=== PATIENT | male | born 1935 | race Caucasian/White ===

== ENCOUNTER 2024-12-08 13:42 | Inpatient (IN) | payer MEDICARE, OTHER, SELFPAY ==
[2024-12-08] VITALS (7 sets, daily range): BP systolic 78–141; BP diastolic 53–118; BMI 25.6
--- NOTE | 2024-12-08 08:51 | W.PN.CARDCBS ---
Addendum entered and electronically signed by PRANAV Christopher 12/08/24 10:50:
[id number]
Original Note:
Today's Communication / Plan
-
CT Chest images from [facility] before cath for review
[facility] with possible RCA lithotripsy PCI
TAVR workup
Impression / Plan
-
PCP: Isidoro Disla MD
CDY: Jhonny Pagan,
HPI: 89 y/o, PMH CAD w/prior CABG x2 (AUGUSTE-LAD, Vg-LCx), prior NSTEMI w/proximal RCA PCI w/BERENICE (02/2016) and recently a second NSTEMI, s/p ostial-proximal RCA PCI w/BERENICE on 11/01/24 at [facility] with Dr. Iqbal. At the time, the AUGUSTE was patent with
severely diseased diagonal with back flow into the LAD, occluded VG to LCx, 75% ostial/prox RCA that was treated with BERENICE. Also noted was severe , with PG 31.8 MG 19.5, ALIS 0.93cm2.
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 Lives independently at [facility].
Pt presented to [facility] via EMS after recurrent episodes of intermittent self limiting chest pain since cath in October. This week, the pain is progressive with increased intensity. On the day of admission, developed 8/10 chest pain and called EMS.
Denies SOB, palps, syncope. HS troponin trended with peak 3652, corresponding CK/MB peaks at 1686/240. He is on daily asa/plavix at home. Started in IV heparin and IV nitro, although treatment is limited d/t hypotension/orthostasis.
Pt was brought to general labor on 12/07-
LM severely calcified, 99% distal LM extending into LAD, LCx
LAD- 100% prox GRIDDLE ATTENDANT, severely calcified
LCx- 100% mid GRIDDLE ATTENDANT with competitive flow in distal LCx via unidentified vessel
RCA- difficulty engaging RCA with pressure dampening
IVUS catheter only to distal stent edge, pullback with calcifications present, w/poor expansion and proximal calcifications
stent malposition, appeared to extend out of the ostium about 1 to 2 mm
Previously placed stents patent with 20-30% mid stenosis.
AUGUSTE-LAD patent
Unable to find origin of VG-LCx, CABG report unavailable
Decision was made to transfer pt to for possible shockwave lithotripsy/stenting to proximal RCA, as well as possible TAVR workup for severe .
IMPRESSION/PLAN:
CAD w/NSTEMI
prior NSTEMI w/RCA PCI (10/2024)
prior CABG x2, unknown date/location- between [id number])
multivessel CAD at [facility] 12/07/24
malposition and poor expansion with proximal calcifications of prox RCA stent
will need re-look here with possible shockwave lithotripsy and stenting
unable to visualize the VG to LCx- will try to get CT Chest images from 09/03/24 for possible graft origin prior to case
already on DAPT w/asa, plavix
currently on heparin gtt, nitro gtt
creat stable post dye load- 0.86 today
plan pending cath result
Mod-Sev /Mod-Sev MR
echo 12/07/24- EF 35%, inferior, distal ap/lateral HK, mild CLVH, mild dil LA, mod-sev MR, mod-sev w/PG 36.8, MG 17.1, ALIS 1.10cm2. (prior echo 10/2024 w/severe , with PG 31.8 MG 19.5, ALIS 0.93cm)
plan is for possible TAVR workup this admission
Chronic systolic HFrEF, 35%
low BP/orthostasis limiting GDMT
currently only on metoprolol xl 12.5mg daily
at home- lasix 40/d, spironolactone 12.5/d- both on hold right now
HLD- lipid profile: Total Chol 95/TG 81/HDL 39/LDL 40
continue atorvastatin 40/d
Orthostasis/hypotension
BP 80s this morning- continue midodrine 10mg TID
monitor BPs
Nonreversible bradycardia w/CHB, RBBB
s/p PPM implant (Medtronic MRI safe 2015)
PAF- currently in NSR
[id number]=
only on asa/plavix d/t history recurrent falls
Stable anemia- hgb 9.5 at baseline
COPD/RLD- stable
Progress Note - Autocad Designer
Subjective
Date of Service: December 08, 2024
[2024-12-08 13:09] LABS: ACT-LR - POC 231 Seconds (116-155)
[2024-12-08 13:49] LABS: O2 Saturation % 99.7 % (94-98); PCO2 30 mmHg (35-48); PO2 137 mmHg (83-108)
[2024-12-08 13:53] LABS: HCO3 11.7 mmol/L (21-28)
--- NOTE | 2024-12-08 14:02 | CON.INTV ---
Consultation
Consultation Request
Date/Time Consultation Requested: 12/08/2024 - 132
Date/Time Consultation Performed: 12/08/2024 - 1349
Requesting Provider: PRANAV Christopher
Performing Provider: Dr. Gonzalez
Reason for Consultation: VT arrest in rn cardiac cath
Medical History
-
Chief Complaint: Chest pain
History of Present Illness:
89-year-old male former tobacco smoker with a past medical history of CAD s/p CABG, history of NSTEMI s/p PCI (2015) as well as recently in October 2024, chronic HFmrEF, aortic stenosis, mitral regurgitation, A-fib s/p PPM (February 2016),
hyperlipidemia, chronic hypotension on midodrine and COPD who initially presented to [facility] with chest pain which had been increasing since October 2024. He was admitted to [facility] and cath showed multivessel CAD with concern for in-stent restenosis of
the RCA and closure of a vein graft. He was transferred here to [place] for further evaluation. He underwent a cardiac cath today with right heart cath showing left-sided heart failure with increased PCWP of 33, reduced CI of 1.8 and left heart
cath showed closure of the vein graft with decreased flow through the RCA stent s/p balloon angioplasty. Cath was complicated by hypotension with nonresponsiveness and VT arrest s/p 1 minute CPR and epi given with ROSC obtained. He was not
intubated. Amiodarone started due to SVT and he was transferred to the CVICU with windows architect services consulted for additional management/recommendations.
When asked with the patient he was in bed, agitated, tachycardic to 137, hypotensive to 97/54 via A-line (97/70 via NIBP), and was saturating 92% on nonrebreather at 14 L/min. Due to agitation I was unable to obtain any current history from him or
ROS.
Of note he had previously seen us in the office in [address] Lemos. He was seeing us at the time for dyspnea on exertion. Last full PFT performed in May 2018 which was negative for COPD and negative for restriction. He had a normal gas
exchange capacity as well with DLco: 92%. Last 6-minute walk test performed in December 2020 showing he did not need home oxygen with huong SaO2 of 98% and he was able to walk 750 feet.
PMHx: CAD, history of NSTEMI, history of pacemaker, A-fib, history of RBBB, history of complete heart block, hypertension, history of COPD
PSHx: Left shoulder surgery, pacemaker, coronary stent
Past Medical History
Past Medical History: Other (Above as per HPI)
Past Surgical History: Other (Above as per HPI)
Social History
Tobacco: Former Smoker
Alcohol: None
Drug: None
Employment: Retired
Family History
Family History: Cancer (Father (unknown type))
Allergies / Home Medications
Allergies
Allergy/AdvReac Type Severity Reaction Status Date / Time
No Known Allergies Allergy Unverified 12/08/24 16:02
Home Medications
�Medication �Instructions �Recorded �Confirmed �Last Taken �Type
ascorbic acid (vitamin C) 1,000 mg 1,000 mg PO DAILY 02/17/16 12/08/24 02/17/16 06:00 History
tablet (Vitamin C)
cholecalciferol (vitamin D3) 25 1,000 unit PO BID 02/17/16 12/08/24 02/17/16 06:00 History
mcg (1,000 unit) capsule (Vitamin
D3)
melatonin 3 mg tablet 3 mg PO HS PRN insomnia 02/17/16 12/08/24 02/16/16 22:00 History
clopidogrel 75 mg tablet 75 mg PO DAILY ##90 02/19/16 12/08/24 12/08/24 08:00 Rx
aspirin 81 mg chewable tablet 81 mg PO DAILY 12/08/24 12/08/24 12/08/24 08:00 History
atorvastatin 40 mg tablet 40 mg PO QPM 12/08/24 12/08/24 12/07/24 18:36 History
bisacodyl 5 mg tablet,delayed 10 mg PO DAILYPRN PRN constipation 12/08/24 12/08/24 Unknown History
release
cyanocobalamin (vitamin B-12) 1,000 mcg PO DAILY 12/08/24 12/08/24 Unknown History
1,000 mcg tablet (Vitamin B-12)
docusate sodium 100 mg capsule 100 mg PO DAILY 12/08/24 12/08/24 Unknown History
(Colace)
folic acid 1 mg tablet 1 mg PO DAILY 12/08/24 12/08/24 Unknown History
furosemide 40 mg tablet 40 mg PO DAILY@1400 12/08/24 12/08/24 Unknown History
magnesium citrate 100 mg tablet 100 mg PO DAILY 12/08/24 12/08/24 Unknown History
magnesium hydroxide 400 mg/5 mL 30 ml PO DAILY PRN constipation 12/08/24 12/08/24 Unknown History
oral suspension
metoprolol succinate 25 mg 12.5 mg PO DAILY 12/08/24 12/08/24 Unknown History
tablet,extended release 24 hr
miconazole nitrate 2 % topical 1 applic topical BID 12/08/24 12/08/24 Unknown History
cream
midodrine 10 mg tablet 10 mg PO TID 12/08/24 12/08/24 12/08/24 08:00 History
nystatin 100,000 unit/gram topical 1 applic topical BID 12/08/24 12/08/24 Unknown History
powder
pantoprazole 40 mg tablet,delayed 40 mg PO DAILY 12/08/24 12/08/24 Unknown History
release (Protonix)
spironolactone 25 mg tablet 25 mg PO QPM 12/08/24 12/08/24 Unknown History
Review of Systems
-
Unable to Obtain full review of systems at this time due to: Acuity
Vitals / Labs / Diagnostic Testing
Vital Signs
Temp Pulse Resp BP Pulse Ox
98.9 F 78 20 93/64 99
12/08/24 18:00 12/08/24 18:00 12/08/24 18:00 12/08/24 15:00 12/08/24 17:00
Lab Data
12/08/24 14:25
12/08/24 14:25
Laboratory Results
12/08/24 12/08/24 12/08/24
13:41 14:16 14:25
PT 16.6 H
INR 1.31
APTT > 200 H*
pH 7.20 L 7.32 L
pCO2 30 L 21 L
pO2 137 H 175 H
HCO3 11.7 L* 10.8 L*
O2 Delivery Level
12/08/24 12/08/24 12/08/24
15:59 17:23 17:25
PT
INR
APTT 81.6 H
pH 7.36 7.25 L
pCO2 22 L 23 L
pO2 156 H 139 H
HCO3 12.4 L* 10.1 L*
O2 Delivery Level Not Reportable
Diagnostic Testing:
Physical Exam
-
HEENT: Normocephalic and Anicteric
Cardiovascular: Peripheral Edema (negative) and Other (Tachycardic)
Respiratory: Wheeze (negative), Rhonchi (negative), Accessory Resp Muscle Use (mild) and Other (Coarse breath sounds heard bilaterally)
GI: Soft, Non Distended, Non Tender and Normal Bowel Sounds
Neurology: Awake, Tremors (negative) and Other (Confused/agitated)
Skin: Warm and Dry
General: Respiratory Distress (mild), Fever (negative) and Chills (negative)
Assessment
-
Assessment: 89-year-old male former tobacco smoker with a past medical history of CAD s/p CABG, history of NSTEMI s/p PCI (2015) as well as recently in October 2024, chronic HFmrEF, aortic stenosis, mitral regurgitation, A-fib s/p PPM (February
2015), hyperlipidemia, chronic hypotension on midodrine and COPD who initially presented to [facility] with chest pain which had been increasing since October 2024. He was admitted to [facility] and cath showed multivessel CAD with concern for in-stent
restenosis of the RCA and closure of a vein graft. He was transferred here to [place] for further evaluation. He underwent a cardiac cath today with right heart cath showing left-sided heart failure with increased PCWP of 33, reduced CI of 1.8
and left heart cath showed closure of the vein graft with decreased flow through the RCA stent s/p balloon angioplasty. Cath was complicated by hypotension with nonresponsiveness and VT arrest s/p 1 minute CPR and epi given with ROSC obtained. He
was not intubated. Amiodarone started due to SVT and he was transferred to the CVICU with windows architect services consulted for additional management/recommendations.
Chronic conditions SHEET ROCK INSTALLER: CAD, history of NSTEMI, history of pacemaker, A-fib, history of RBBB, history of complete heart block, hypertension, history of COPD
Impression:
#VT arrest s/p ACLS with epi with ROSC obtained
#Acute respiratory failure with hypoxia
#Lactic acidosis due to presumed sepsis from UTI
#Shock due to sepsis in the setting of UTI as well as cardiogenic
#Leukocytosis due to sepsis
#Acute anemia
#Metabolic acidosis with increased anion gap due to lactic acidosis
#Hyperglycemia (last HbA1c: 6.3 in February 2016)
#Transaminitis
#Elevated troponin in the setting of recent cath
#Acute HFmrEF exacerbation with increased PCWP at 33 via right heart cath from today (12/08/2024)
#Complicated UTI
#SVT withA-fib with RVR mixed with ocassional VT now on amiodarone gtt
Plan:
Since coming out of the [facility], he has remained tachycardic with worsening lactic acidosis and altered mental status
Given cefepiem, IV vanco, 1L NS 0.9% bolus and re-bolused with IV amio and given dig, also given 4 amps total of bicarb
Bicarb drip being started but he is becoming increasingly more lethargic and will likely need to be intubated assuming this is in line with patient's goals of care given his advanced age
Trend HCO3
Trend lactate until <2mmol/L
Maintain aspiration precautions and keep HOB >30-45�
Maintain SpO2 88-95%
prn nebulized bronchodilators - not currently bronchospastic
Trend blood gas to monitor pH and pCO2
Mendenhall in place
Once he got back from the [facility], Mendenhall catheter was inserted and there was cloudy, yellow/pink-colored urine which came out into the tubing
Trend WBC and monitor for fevers
Broad-spectrum antibiotics started with cefepime + IV vanco
Check a blood culture and urine culture is sent and is pending
Check CXR -I personally viewed this and there was pulmonary vascular congestion with no obvious signs of pneumonia (follow-up official impression)
Hold off on diuretics given his hypotension with shock state on vasopressors (Levophed currently)
Start vasopressin given concern for sepsis
Maintain MAP >65 with levophed
Continue ASA + plavix with high intensity statin
Goal HR <110, and continue with amiodarone drip
Trend LFTs
Check TSH with reflex to fT4
Also started on digoxin with goal of total load of 1mg
May need to change Levophed to Bong-Synephrine if tachycardia worsens
Replete electrolytes with K>4, Mg>2
Cardiology on board and recommendations appreciated
Interrogation of PPM per cardiology - follow up results
Monitor blood sugar to maintain euglycemia with goal BG 140-180 with ISS q6hr
DVT prophylaxis
Guarded prognosis - he remains full code
Continue ICU level care for this critically ill patient.
Critical care statement: A total of 38 minutes of critical care time was provided for this patient today. This includes management of unstable vital signs, evaluation of the patient at bedside, reviewing the patient's pertinent medical records
including radiographs, microbiology, laboratory evaluations, and discussion with primary team, consultants, pharmacy, nutrition, physical therapy, case management, charge nurse, critical care nursing, and respiratory therapy.
[2024-12-08] MEDS: XYLOCAINE BOLUS 100 MG 50 MG IV (14:15)
[2024-12-08 14:23] LABS: B.E. -13.6 mmol/L; PCO2 21 mmHg (35-48); PO2 175 mmHg (83-108); pH 7.32 (7.35-7.45)
[2024-12-08] MEDS: SODIUM BICARBONATE 100 MEQ IV ×3 (14:25→20:54)
[2024-12-08 14:26] LABS: HCO3 10.8 mmol/L (21-28)
[2024-12-08] MEDS: MAGNESIUM SULFATE 50 IV (14:30)
[2024-12-08] MEDS: XYLOCAINE 2 GRAM 500 IV (14:35)
[2024-12-08] MEDS: LEVOPHED 250 IV (14:36)
[2024-12-08 14:41] LABS: % Basophils 0.6 % (0-2); % Eosinophils 0.2 % (0-6); % Monocytes 9.8 % (1.7-9.3); % Neutrophils 66.4 % (42.2-75.2); Absolute Basophils 0.1 10^3/uL (0-0.2); Absolute Immature Granulocytes 0.1 10^3/uL (0-0.05); Absolute Lymphocytes 2.8 10^3/uL (1.2-3.4); Absolute Monocytes 1.3 10^3/uL (0.1-0.6); Absolute Neutrophils 8.5 10^3/uL (1.4-6.5); Hematocrit 29.8 % (39.0-52.0); Hemoglobin 9.6 g/dL (13.0-18.0); Mean Corp Hgb Conc. 32.2 g/dL (33.0-37.0); Mean Corpuscular Hgb 27.4 pg (27.0-31.0); Mean Corpuscular Volume 84.9 fL (80.0-94.0); Nucleated Red Blood Cells % 0 % (-); Platelet Count 235 10^3/uL (130-400); Red Blood Cell Count 3.51 10^6/uL (4.70-6.10); Red Cell Dist. Width 16.7 % (11.5-14.5); White Blood Cell Count 12.7 10^3/uL (4.8-10.8)
[2024-12-08] MEDS: CORDARONE 103 MG IV ×2 (14:45→17:38)
[2024-12-08] MEDS: MORPHINE SULFATE 1 MG IV (14:50)
[2024-12-08 14:53] LABS: INR 1.31; PT 16.6 Sec (11.4-14.6)
[2024-12-08 15:05] LABS: Lactic Acid 7.6 mmol/L (0.7-2.0)
[2024-12-08 15:09] LABS: Urine Albumin 3+ (Neg - Trace); Urine Bilirubin 1+ (Negative); Urine Character Slightly Cloudy (Clear); Urine Glucose Negative (Negative); Urine Ketone Trace (Negative); Urine Leukocyte 2+ (Negative); Urine Nitrite Positive (Negative); Urine Occult Blood 4+ (Negative); Urine Urobilinogen Negative (Neg - 1+)
[2024-12-08 15:09] LABS: APTT > 200 Sec (23.4-35.0)
[2024-12-08 15:10] LABS: Urine Color Pink
[2024-12-08 15:16] LABS: Urine Squamous Cell 0-2 /LPF (Few)
[2024-12-08 15:18] LABS: Urine White Cell 60-70 /HPF (0-5)
[2024-12-08 15:19] LABS: Urine Bacteria Moderate (Negative); Urine Red Blood Cell >100 /HPF (0-2)
--- NOTE | 2024-12-08 15:21 | HPS.HSE ---
Family Physician
-
Family Physician: MAGNOLIA MUNROE, DO
Chief Complaint
-
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
History of Present Illness
Mr. Charles Nowak is a 89 yo man with hx CAD with prior CABG, prior NSTEMI s/p PCI 2015 and recently 11/01/24, chronic HFmfEF (43%), moderate-severe and MR, paroxysmal afib, bradycardia s/p PPM 04/16, HLD, orthostasis on midodrine, COPD presented
to [facility] with recurrent episodes of chest pain since cath in October which increased in intensity. He was admitted to [facility] and is s/p cath showing multivessel CAD with concern for in-stent restenosis of RCA and closure of vein graft. He was
transferred to for further intervention.
Patient underwent cardiac cath today. RHC performed first showing high filling pressures with wedge 33, index 1.8. LHC showed likely closure of vein graft with decreased flow RCA stent s/p balloon angioplasty. Cath complicated by episode of
hypotension and non-responsiveness s/p 1minute CPR and Epi with immediate ROSC and normal mentation. He is in SVT and amio gtt started.
Patient seen in CVICU. He is short of breath, urinating post lasix given. Denies current chest pain.
Medical History
Past Medical History
Past Medical History: Reports Other (CAD with prior CABG, prior NSTEMI s/p PCI 2015 and recently 11/01/24, chronic HFmfEF (43%), moderate-severe and MR, paroxysmal afib, bradycardia s/p PPM 04/16, HLD, orthostasis on midodrine, COPD)
Past Surgical History: Reports Cardiac (CABG)
Social History
Tobacco: Former Smoker
Alcohol: Occasional
Drug: None
Family History
Family History: Not pertinent
Allergies / Home Medications
Allergies reflects when Allergies were last updated in [employer].
Home Medications with original date entered in [employer]
Allergy/Medication List:
Allergies
Allergy/AdvReac Type Severity Reaction Status Date / Time
amiodarone Allergy Unknown Verified 12/08/24 10:28
Home Medications
ascorbic acid (vitamin C) 1,000 mg tablet (Vitamin C) 1,000 mg PO DAILY 02/17/16
cholecalciferol (vitamin D3) 25 mcg (1,000 unit) capsule (Vitamin D3) 1,000 unit PO BID 02/17/16
melatonin 3 mg tablet 3 mg PO HS PRN insomnia 02/17/16
clopidogrel 75 mg tablet 75 mg PO DAILY ##90 02/19/16
aspirin 81 mg chewable tablet 81 mg PO DAILY 12/08/24
atorvastatin 40 mg tablet 40 mg PO QPM 12/08/24
bisacodyl 5 mg tablet,delayed release 10 mg PO DAILYPRN PRN constipation 12/08/24
cyanocobalamin (vitamin B-12) 1,000 mcg tablet (Vitamin B-12) 1,000 mcg PO DAILY 12/08/24
docusate sodium 100 mg capsule (Colace) 100 mg PO DAILY 12/08/24
folic acid 1 mg tablet 1 mg PO DAILY 12/08/24
furosemide 40 mg tablet 40 mg PO DAILY@1400 12/08/24
magnesium citrate 100 mg tablet 100 mg PO DAILY 12/08/24
magnesium hydroxide 400 mg/5 mL oral suspension 30 ml PO DAILY PRN constipation 12/08/24
metoprolol succinate 25 mg tablet,extended release 24 hr 12.5 mg PO DAILY 12/08/24
miconazole nitrate 2 % topical cream 1 applic topical BID 12/08/24
midodrine 10 mg tablet 10 mg PO TID 12/08/24
nystatin 100,000 unit/gram topical powder 1 applic topical BID 12/08/24
pantoprazole 40 mg tablet,delayed release (Protonix) 40 mg PO DAILY 12/08/24
spironolactone 25 mg tablet 25 mg PO QPM 12/08/24
Review of Systems
-
History Source: Patient
A 12 point ROS was completed and negative except as noted: Yes
Physical Exam
Vital Signs
Vital Signs
Temp Pulse Resp BP Pulse Ox
98.9 F 81 10 88/53 94
12/08/24 10:47 12/08/24 11:15 12/08/24 11:15 12/08/24 10:53 12/08/24 11:15
Physical Exam
General: Other (frail appearing, tachypneic )
HEENT: PERRLA
Respiratory: Rales
Cardiac: S1/S2 and Tachycardia
GI: Soft and Non Tender
Musculoskeletal: No Edema
Skin: Warm and Dry; No Rash
Neuro: Awake and Alert
Psych: Anxious
Laboratory Results
-
12/08/24 14:25
Laboratory Results
PT 16.6 Sec (11.4-14.6) H 12/08/24 14:25
INR 1.31 12/08/24 14:25
APTT > 200 Sec (23.4-35.0) H* 12/08/24 14:25
pH 7.32 (7.35-7.45) L 12/08/24 14:16
pCO2 21 mmHg (35-48) L 12/08/24 14:16
pO2 175 mmHg (83-108) H 12/08/24 14:16
HCO3 10.8 mmol/L (21-28) L* 12/08/24 14:16
Lactic Acid 7.6 mmol/L (0.7-2.0) H* 12/08/24 14:29
Data Reviewed
-
Diagnostic Radiology: Report Reviewed by me
Lab Data: Labs Reviewed by me
Impression/Plan
-
Mr. 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
to [facility] with recurrent episodes of chest pain since cath in October which increased in intensity. He was admitted to [facility] and is s/p cath showing multivessel CAD with concern for in-stent restenosis of RCA and closure of vein graft. He was
transferred to for further intervention.
Patient underwent cardiac cath today. RHC performed first showing high filling pressures with wedge 33, index 1.8. LHC showed likely closure of vein graft with decreased flow RCA stent s/p balloon angioplasty. Cath complicated by episode of
hypotension and non-responsiveness s/p 1minute CPR and Epi with immediate ROSC and normal mentation. He is in SVT and amio gtt started.
Heart Failure mildly reduced EF Acute Exacerbation
-elevated wedge pressure in cath
-s/p Lasix 80mg IV ; continue 40mg IV BID
-daily weights, strict I/O
-TTE 12/07 with EF 35% with WMA; moderate-severe MR and moderate-severe
NSTEMI
Coronary Artery disease hx CABG
Hx PCI, most recent 11/01/24
s/p balloon angioplasty to RCA earlier today
-continue asa/plavix/statin
-trend Troponins, up to 41.1
Cardiogenic Shock
-IV Diuresis as above
-Continue Levophed
-holding WHANAU SUPPORT WORKER Metoprolol
-patient is on TID Midodrine at home
Possible UTI with inflamed urine
-continue IV Cefepime while awaiting urine culture
AG Metabolic Acidosis; Lactic Acidosis 2/2 Above
-diuresis
-trend lactate
SVT
-continue IV amiodarone, IV Digoxin ordered
Moderate-Severe
Moderate-Severe MR
-plan is for possible TAVR work-up this admission
Nonreversible bradycardia w/CHB, RBBB
s/p PPM implant (Medtronic MRI safe 2015)
Atrial Fibrillation
-not on AC 2/2 falls
GERD - WHANAU SUPPORT WORKER Protonix
FULL CODE
Total Critical Care Time 45 minutes. I was immediately available to the patient and staff. I personally examined, reviewed labs, diagnostic images/reports, interpretations, treatment plans, discussed patient care with other providers and family
or caregivers (if patient is unable to make decisions), entered orders as appropriate and documented the medical record.
[2024-12-08] MEDS: NSS 500 VEN SHEATH (15:26)
[2024-12-08] MEDS: LR 1000 IV (15:26)
[2024-12-08] MEDS: LANOXIN 500 MCG IV (15:26)
[2024-12-08 15:33] LABS: AST (SGOT) 258 U/L (17-59); Albumin 3.4 g/dl (3.5-5.0); Alkaline Phosphatase 73 U/L (38-126); Blood Urea Nitrogen 27 mg/dl (9-20); Calcium 8.3 mg/dl (8.4-10.2); Carbon Dioxide 9 mmol/L (22-30); Chloride 111 mmol/L (98-107); Estimated Creatinine Clearance 47 ml/min; Glucose 213 mg/dl (70-99); Potassium 3.9 mmol/L (3.5-5.1); Sodium 138 mmol/L (135-145); Total Protein 5.9 g/dl (6.3-8.2); eGFR > 60.00
[2024-12-08] MEDS: CORDARONE 518 MG IV (15:41)
[2024-12-08 15:48] LABS: ALT (SGPT) 54 U/L (0-50)
--- NOTE | 2024-12-08 15:52 | PHA.VAN.IN ---
Assessment
- Assessment
Renal Function: Unknown baseline
Concomitant Antimicrobials: cefepime
Plan
- Plan
Initial / Loading Dose: 2000mg - administration pending
Maintenance Regimen: dosing by level
Monitoring: random 12/09 06
MRSA Screen: Ordered per protocol
Will start with dosing by level for now to trend renal function post finishing lab technician
Pharmacokinetics Vancomycin I
- -
Patient Age: 89
Patient Sex: Male
Vancomycin Day #: 1
Indication: Other
Requesting Provider: Omaira Smith
Pertinent Antimicrobial Allergies:
no pertinent antibiotic allergies
Height / Weight:
Height 5 ft 7 in
Actual Weight 74.2 kg
- Vital Signs / Lab Results
Temp Pulse Resp BP Pulse Ox
98.9 F 81 10 88/53 94
12/08/24 10:47 12/08/24 11:15 12/08/24 11:15 12/08/24 10:53 12/08/24 11:15
Lab Results - Hematology
12/08/24
14:25
WBC 12.7 H
Lab Results - Chemistry
12/08/24
14:25
BUN 27 H
Creatinine 1.0
Estimated Creat Clear 47
Albumin 3.4 L
12/08/24
14:29
Lactic Acid 7.6 H*
Lab Results - Urine
12/08/24
14:59
Urine Nitrite (Reflex) Positive A
Leukocyte Esterase Rfl 2+ A
Urine WBC (Reflex) 60-70 A
Ur Squamous Epith Cells 0-2
Urine Bacteria (Reflex) Moderate A
--- NOTE | 2024-12-08 16:00 | PTCARENOTE ---
Pt received from cath lab radiological technologist ~1400. Pt agitated and restless. Dr. Ashraf at bedside. Pt in [place] on the tele monitor. HR >120s. BP labile. 90-100s/50s. Levo infusing as ordered. Lido push, bicarb, amio bolus & drip, morphine, and digoxin administered
as ordered - see MAR. B/L DP pulses present via doppler. B/L radial pulses palpable. Pt on non-rebreather mask at 14 L. Unable to get POX. ABG POX shows 99-100%. Pt tachypneic. Mendenhall catheter initiated. Imani/blood tinged urine upon insertion. UA
sent. Left radial cath site w/ R band intact. Air removed as appropriate. Right fem arterial and venous site intact and transducing. Right leg immobilizer applied. EKG obtained. Labs trended as ordered. Lytes correctly per labs. Family updated by
.
[2024-12-08 16:09] LABS: B.E. -11.5 mmol/L; O2 Saturation % 99.5 % (94-98); PCO2 22 mmHg (35-48); PO2 156 mmHg (83-108); pH 7.36 (7.35-7.45)
[2024-12-08] MEDS: VANCOCIN 540 MG IV (16:14)
[2024-12-08 16:23] LABS: HCO3 12.4 mmol/L (21-28)
[2024-12-08] MEDS: STERILE WATER FOR INJECTION 10 ML IV (16:39)
[2024-12-08] MEDS: KCL 50 IV (16:39)
[2024-12-08] MEDS: MAXIPIME 2000 MG IV (16:39)
--- NOTE | 2024-12-08 16:39 | CM ---
Chart reviewed. I spoke to the patient's daughter and son in law to obtain the information. Patient is independent of ADLS, lives independent living at [facility], with his who has dementia, 3rd floor, elevator access, ambulates with a RW.
Patient was hospitalized at [place] and then discharged to [facility], where [facility] back to home with [facility]. Patient returned to [place] with CP on 12/06 and transferred to on 12/08. Plan will be
to be discharged home with VN or SNF based on patients functional assessment needs. CM to follow
[2024-12-08 17:32] LABS: B.E. -15.5 mmol/L; O2 Saturation % 99.6 % (94-98); PCO2 23 mmHg (35-48); PO2 139 mmHg (83-108); pH 7.25 (7.35-7.45)
[2024-12-08 17:33] LABS: HCO3 10.1 mmol/L (21-28)
[2024-12-08 17:47] LABS: APTT 81.6 Sec (23.4-35.0)
[2024-12-08 17:58] LABS: Lactic Acid 13.6 mmol/L (0.7-2.0)
--- NOTE | 2024-12-08 17:58 | ITS.CL.PN ---
Supply Chain Associate - Procedure Note
Procedure
Procedure Note:
CARDIAC CATHETERIZATION REPORT
Date of Procedure: 12/08/2024
Referring: Dr. Tom Iqbal MD
Indication: NSTEMI
PROCEDURE(S)
1. right heart catheterization
2. left heart catheterization
3. coronary angiography with bypass graft angiography
4. IVUS of RCA
5. balloon angioplasty of RCA
6. code blue
7. additional critical care time independent of above procedures, 45 minutes
ACCESS:
5F right femoral vein (sewn in place)
6F left radial artery (note: abandoned due to radial artery tortuosity, small vessel caliber; closure: radial band)
6F right common femoral artery (sewn in place)
CATHETERS
1. 5F balloon wedge catheter
2. 6F AL1
3. 6F JR4 guide catheter
MODERATE SEDATION: 103 minutes of moderate sedation was utilized. An independent medical numerical control operator was present to assist with and help manage the patient's level of consciousness and physiologic status.
ULTRASOUND GUIDED VASCULAR ACCESS (right femoral vein): Ultrasound was utilized for vascular access. The vessel was visualized under ultrasound and noted to be patent. An image of the vessel was stored permanently in the patient's medical record.
Under direct ultrasound guidance, vascular access was obtained using a modified Seldinger technique and a 5 [place] sheath was placed.
ULTRASOUND GUIDED VASCULAR ACCESS (left radial artery): Ultrasound was utilized for vascular access. The vessel was visualized under ultrasound and noted to be patent. An image of the vessel was stored permanently in the patient's medical record.
Under direct ultrasound guidance, vascular access was obtained using a modified Seldinger technique and a 6 [place] sheath was placed.
ULTRASOUND GUIDED VASCULAR ACCESS (right common femoral artery): Ultrasound was utilized for vascular access. The vessel was visualized under ultrasound and noted to be patent. An image of the vessel was stored permanently in the patient's medical
record. Under direct ultrasound guidance, vascular access was obtained using a modified Seldinger technique and a 6 [place] sheath was placed.
HEMODYNAMIC DATA
AO 99/57 (mean 73) mmHg
RA 15 mmHg
RV 60/10 (EDP 17) mmHg
PA 62/31 (mean 43) mmHg
PCWP 33 mmHg
SaO2 94.9%
SvO2 41.2%
Hb 9.3 g/dL
CO/CI 3.41/1.84 L/min/m2
SVR 1359 dsc*-5
PVR 2.9 Wood units
CORONARY ANGIOGRAPHY
Dominance: right
LM: not selectively engaged as imaged recently with findings of LAD POLYSILICON PREPARATION WORKER and LCx sub-total occlusion with evidence of robust competitive flow
RCA: moderate caliber vessel giving rise to a small RPDA and moderate caliber RPL branch. There is mild-moderate ISR vs. underexpansion in the recently placed proximal RCA stent. There is also a focal region of moderate ISR in the mid-RCA in an
older previously placed stent. The proximal RCA stent was interrogated further by IVUS which demonstrated appropriate ostial positioning and full ostial expansion. However, in the mid-portion of the proximal stent had focal underexpansion likely due
to calcification. The IVUS catheter would not pass distal to this region.
BYPASS GRAFT ANGIOGRAPHY:
AUGUSTE-Diag: not selectively engaged as imaged recently with findings of patent touchdown to the large diagonal branch with TIMI3 backfilling of the LAD through a severe proximal diagonal stenosis. This proximal diagonal stenosis and degree of
diagonal/LAD filling was not appreciably changed between angiography on 11/01/24 and 12/07/24.
SVG-OM: taken from a right sided aortotomy and courses anteriorly around the aorta with distal anastomosis to the OM. There is faint filling of the distal aspect of the vein graft with rapid washout suggestive of patency. This faint filling is
likely due to non-coaxial engagement of the graft caused by its angulated course from the aortotomy. There is also the possibility of proximal unappreciated stenosis in the graft. However, rapid washout of flow (and robust competitive flow noted on
angiogram of the qagan tayagungin LCx 12/07/24) is suggestive of patency.
Balloon angioplasty of the RCA complicated by cardiac arrest with ACLS
Overall findings did not suggest presence of a definitive culprit lesion for the patient's presentation. Given the findings sub-optimal expansion of a recently placed RCA stent with concern that this could lead to future stent failure, we proceeded
with balloon angioplasty of the proximal RCA stent. The patient was noted to be oxygenating well with stable respiratory status. Given that the intervention of the RCA would be performed in stented segments and likely require minimal additional
contrast dye, it was felt that this could be safely performed despite the elevated wedge pressure. A 3.0x12 mm NC balloon was advanced to the distal aspect of the proximal stent (past the point where IVUS could not pass) and serial balloon
angioplasty was performed distal to proximal to high pressure (18 diane). The balloon was noted to expand fully with each inflation. The plan was then to perform repeat IVUS to assess need for further modification in the form of Shockwave lithotripsy.
However, the patient complained of new shortness of breath and was observed to become progressively bradycardic in sinus rhythm with concomitant development of rapid hypotension with MAP ~40. He rapidly became unresponsive. His deterioration was
felt to be most likely caused by ischemia from balloon inflations in the RCA. Chest compressions were initiated and 1 mg of epinephrine given. After approximately 1 minute of high quality chest compressions, the patient was noted to begin breathing
spontaneously and regained a hypertensive blood pressure with a wide complex tachycardia which appeared most consistent with SVT with aberrancy given observation of PVCs with compensatory pauses. He was awake and answering commands appropriately.
Given the non-critical nature of the RCA stenosis with apparently adequate POBA result and hemodynamic stability, the decision was made to end the procedure and stabilize the patient.
Over the next 45 minutes, the patient's blood pressure was stabilized on 5 of norepi. He become progressively agitated, which progressed to delirium, and he continued to complain of shortness of breath. 80 IV lasix was given and serial blood gases
performed on NRB consistently showing SaO2 of 100%. Intubation was deferred in this setting. Groin lines were sewn in for monitoring/access. He was taken to the IVU and family updated.
After arriving to the IVU, the patient's condition later deteriorated with progressive lactic acidosis and hypotension, eventually requiring bicarb, epi, and intubation. Urine obtained via sparks catheter was suspicious for UTI and empiric broad
spectrum antibiotics started. Bedside ultrasound demonstrated no effusion, a moderately reduced LVEF, and no significant RV dysfunction.
CONCLUSIONS
1. elevated biventricular filling pressures, severe predominantly post-capillary pulmonary hypertension, and reduced cardiac output with mildly elevated SVR
2. coronary angiography demonstrates likely patent SVG-OM and underexpansion of a previously placed RCA stent
3. IVUS of RCA demonstrates ostial stent patency and full expansion, with mid-stent underexpansion
4. POBA of the proximal RCA stent with 3.0x12 mm NC balloon inflated to high pressure complicated by brief PEA arrest
RECOMMENDATIONS
1. expectant management after cardiac catheterization via left radial and right femoral approach, groin lines sewn in place and TR band placed
2. continue ASA and Plavix
3. management of presumed mixed cardiogenic shock and septic shock with even to negative fluid balance, norepi/vaso for goal MAP>65, epi as additional agent
4. stop antiarrhythmics
5. vent management / antibiotics per pul crit care
6. Regarding his coronary artery disease, following the procedure angiograms were reviewed extensively with multiple interventionalist cardiologists. Though angiograms suggests SVG-OM patency, once stable, would favor more definitive angiographic
interrogation of SVG-OM to rule out graft disease. If significant SVG stenosis is detected, would favor SVG PCI or PCI of qagan tayagungin LM-LCx if SVG PCI not possible. If SVG not found to be stenosed, will consider antegrade LM-LAD PCI given compromised
retrograde flow to LAD via AUGUSTE-diag.
7. Pending recovery, will need eventual re-discussion of candidacy for valvular intervention given known mod-severe and MR.
Copy to: Dr. Jhonny Pagan DO (author's agent); Dr. Isidoro Disla MD (PCP)
Signed: Ramez Pena MD, PhD
--- NOTE | 2024-12-08 18:03 | PTCARENOTE ---
Pt having increased runs of VT/F. CT MATERIALS TECHNICIAN at the bedside. Pipeline Dispatch Operator & Hospitalist notified vis TT. Additional Amio bolus and lab work sent. Pt now SR w/ BBB. HR 70s. BP remains labile. Levo titrated. PPM interrogated w/ care link device. cardiology
MATERIALS TECHNICIAN aware. Pt still restless, but calmer than when received.
[2024-12-08 18:40] LABS: B.E. -12.4 mmol/L; O2 Saturation % 92.7 % (94-98); PCO2 47 mmHg (35-48); PO2 76 mmHg (83-108)
[2024-12-08 18:41] LABS: pH 7.14 (7.35-7.45)
--- NOTE | 2024-12-08 18:52 | W.SUR.POST ---
Surgical Immediate Post Op
Note
Endotracheal Intubation Procedure
Date of procedure: 12/08/2024
Pre Op Diagnosis: Acute respiratory failure with hypoxia/altered mental status
Post Op Diagnosis: Same as above
Procedure Performed: Endotracheal intubation
Cricoid pressure used: No
Number of attempts: 1
Primary Surgeon/proceduralist: Dr. Gonzalez
Secondary Surgeons: N/A
Anesthesia: 25mg etomidate, 100mg succinylcholine
Estimated Blood Loss: None
Fluids: N/A
Drains/Shunts: N/A
Specimens/Cultures: N/A
Doppler/Duplex/Angio (Y/N): N/A
Complications: No immediate complications
Operative Findings: Patient was intubated with a size 8 ET tube which was successfully seen going through the cords using a video glidescope with S3 blade. RSI used as above. Successful insertion was confirmed using color capnometry. Family
updated prior to intubation and they confirmed he is full code. Vent settings will be: 100%, TV: 500, respiratory rate: 28 and PEEP: 5. ABG in 30 minutes.
[2024-12-08] MEDS: SODIUM BICARBONATE 1150 MEQ IV (19:13)
[2024-12-08] MEDS: SUBLIMAZE 50 MCG IV ×6 (19:20→23:14)
[2024-12-08 19:53] LABS: Ionized Calcium 1.05 mMOL/L (1.15-1.33)
[2024-12-08 19:56] LABS: B.E. -14.5 mmol/L; O2 Saturation % 99.6 % (94-98); PCO2 28 mmHg (35-48); PO2 232 mmHg (83-108); pH 7.23 (7.35-7.45)
[2024-12-08 19:57] LABS: HCO3 11.7 mmol/L (21-28)
[2024-12-08] MEDS: PITRESSIN 100 IV (19:58)
--- NOTE | 2024-12-08 20:00 | PTCARENOTE ---
Dr. Pena at bedside. Pt pressures labile. [address] Pena. ABG drawn and sent. Family notified by . Dr. Gonzalez/pharmacy/respiratory at bedside. Pt intubated 1839. OG tube placed. Pressures remain labile. HR >100. POX 100%. Bicarb
drip started. Vaso started. Levo / Amio infusing. Pt given fent boluses PRN as ordered. Xray completed. Ordered labs sent.
[2024-12-08 20:09] LABS: Glucose - Point of Care 145 mg/dl (70-99)
[2024-12-08 20:19] LABS: Lactic Acid 14.5 mmol/L (0.7-2.0)
[2024-12-08 20:30] LABS: Blood Urea Nitrogen 28 mg/dl (9-20); Calcium 7.7 mg/dl (8.4-10.2); Carbon Dioxide 10 mmol/L (22-30); Chloride 106 mmol/L (98-107); Estimated Creatinine Clearance 39 ml/min; Glucose 141 mg/dl (70-99); Potassium 3.9 mmol/L (3.5-5.1); Sodium 142 mmol/L (135-145); eGFR 57.81
--- NOTE | 2024-12-08 21:00 | PTCARENOTE ---
Pox unable t give an accurate reading , EUGENIA Brennan made awarr will monitor using ABG o2 Sat
--- NOTE | 2024-12-08 21:00 | PTCARENOTE ---
received pt from previous RN. pt intubated 8.0 cm ETT 24 at the lip. Pt sinus tachy per tele monitor HR 110s. BP labile, +2 B/L radial pulses, Doppler DP pulses, generalized edema, pox 97% Vent settings A/C 65%/28/500/5. Og tube @ 50. [place] draining
minimal karie urine.Left radial cath site w/ R band intact. Right fem arterial and venous site intact and transducing. PIV intact.
gtts
Levo
Vaso
Bicarb
Amio
[2024-12-08] MEDS: CALCIUM GLUCONATE 100 IV (21:03)
[2024-12-08 21:57] LABS: B.E. -10.4 mmol/L; Ionized Calcium 1.02 mMOL/L (1.15-1.33); O2 Saturation % 98.3 % (94-98); PCO2 25 mmHg (35-48); PO2 95 mmHg (83-108); Potassium 4.7 mMOL/L (3.5-5.1); pH 7.35 (7.35-7.45)
[2024-12-08 22:01] LABS: HCO3 13.8 mmol/L (21-28)
[2024-12-08 22:22] LABS: Lactic Acid 17.5 mmol/L (0.7-2.0)
[2024-12-08] MEDS: CALCIUM CHLORIDE 10% SYRINGE 1000 MG IV (22:24)
--- NOTE | 2024-12-08 22:28 | VATNOTE ---
VAT paged to obtain more IV access as patient has multiple sites with incompatible medications. While assessing arms for potential PIV, this VAT RN noticed the left upper arm PIV was infusing and infiltrated. Primary RN immediately stopped infusion
and removed PIV. Midline placed in right brachial vein as patient needed urgent access. Right forearm appears swollen however the cause is unknown. Right upper arm not swollen, skin is intact. Primary RN and PA at bedside. VAT expressed concern for
placing midline in a swollen arm not knowing if a DVT is present. PA agrees the need for more access outweighs the risk of DVT. Will continue to monitor and obtain additional access if needed.
[2024-12-08] MEDS: SODIUM BICARBONATE 50 MEQ IV (22:29)
[2024-12-08] MEDS: SUBLIMAZE 100 IV (22:38)
[2024-12-08] MEDS: LANOXIN 250 MCG IV (22:52)
[2024-12-08 23:13] LABS: B.E. -11.3 mmol/L; Ionized Calcium 1.19 mMOL/L (1.15-1.33); O2 Saturation % 99.8 % (94-98); PCO2 25 mmHg (35-48); PO2 123 mmHg (83-108); Potassium 4.8 mMOL/L (3.5-5.1); pH 7.33 (7.35-7.45)
[2024-12-08 23:17] LABS: HCO3 13.2 mmol/L (21-28)
[2024-12-08] MEDS: NEO-SYNEPHRINE 1% 260 MG IV (23:18)
[2024-12-08] MEDS: VERSED 0.5 MG IV (23:30)
[2024-12-09] VITALS: BP 110/73
[2024-12-09] MEDS: SUBLIMAZE 50 MCG IV (00:13)
[2024-12-09] MEDS: VERSED 0.5 MG IV ×2 (00:27→01:49)
[2024-12-09] MEDS: DIPRIVAN 100 IV (00:32)
[2024-12-09] MEDS: NITRO-BID 0.5 INCH TOPICAL (00:58)
[2024-12-09 00:59] LABS: Glucose - Point of Care 110 mg/dl (70-99)
[2024-12-09 01:00] VITALS: BP 94/56
[2024-12-09] MEDS: CALCIUM CHLORIDE 10% SYRINGE 500 MG IV (01:00)
[2024-12-09] MEDS: SODIUM BICARBONATE 50 MEQ IV (01:00)
[2024-12-09] MEDS: LEVOPHED 250 IV (01:04)
[2024-12-09 01:11] LABS: B.E. -11.4 mmol/L; PCO2 23 mmHg (35-48); PO2 103 mmHg (83-108); Potassium 5.1 mMOL/L (3.5-5.1); pH 7.35 (7.35-7.45)
[2024-12-09 01:18] LABS: HCO3 12.7 mmol/L (21-28)
[2024-12-09 01:29] VITALS: BP 67/42
[2024-12-09 01:37] LABS: Lactic Acid 22.6 mmol/L (0.7-2.0)
--- NOTE | 2024-12-09 01:42 | PTCARENOTE ---
daughter spoke with EUGENIA Brennan and this RN to discuss code status, daughter states patient is a DNR per living will, currently full code
[2024-12-09 01:44] LABS: Blood Urea Nitrogen 30 mg/dl (9-20); Carbon Dioxide 12 mmol/L (22-30); Chloride 103 mmol/L (98-107); Estimated Creatinine Clearance 33 ml/min; Glucose 99 mg/dl (70-99); Potassium 5.1 mmol/L (3.5-5.1); Sodium 144 mmol/L (135-145); Triglycerides 120 mg/dl (10-149); eGFR 48.04
[2024-12-09 02:00] VITALS: BP 42/17
[2024-12-09 03:00] VITALS: BP 60/44
--- NOTE | 2024-12-09 03:00 | PTCARENOTE ---
pt cardioverted w/ CTPA Tsilina at bedside
--- NOTE | 2024-12-09 03:01 | W.PN.UPDATE ---
Update Note
Progress Note Update
-@approx 12:30 am BP started to trend down from 120s to 80s, hr 130s (difficult to tell a-fib vs sinus tach with RBBB). Pt was given Calcium and bicarb overnight. Epi and Bong were added. All pressors were uptitrated to max doses (Levo, Vaso, Bong).
Pt's UO trended down to none. I had a long discussion with pt's daughter, Kina, and her about the situation. She was able to find Charles's living will, where he stated his wishes to be DNR. Code status was changed to DNR. After reviewing
tele and ECG with Dr Molina, we decided to try cardioversion. Pt was sedated with Propofol and Fentanyl and shocked starting at 50 J to 200 J. ECG revealed more regular, slower rhythm 120s. Pt's BP continued to trend down. I updated Kina after the CV
attempts that situation remains dire and suspect multisystem organ failure. Answered all questions. Daughter lives 1.5 hrs away. She will call her step-sister, Lee Ann, who lives closer, in [place], and also has POA. I gave her our unit phone number
and asked to call if she or Lee Ann have more questions or concerns. Updated Hospitalist ROLL GRINDER OPERATOR, Dr. Molina and Dr. Gonzalez.
[2024-12-09 03:13] LABS: Hemoglobin 9.4 g/dL (13.0-18.0); Mean Corp Hgb Conc. 30.3 g/dL (33.0-37.0); Mean Corpuscular Hgb 27.5 pg (27.0-31.0); Mean Corpuscular Volume 90.6 fL (80.0-94.0); Mean Platelet Volume 10.5 fL (7.4-10.4); Platelet Count 199 10^3/uL (130-400); Red Blood Cell Count 3.42 10^6/uL (4.70-6.10); White Blood Cell Count 18.7 10^3/uL (4.8-10.8)
[2024-12-09 03:20] LABS: INR 2.74
[2024-12-09 03:24] LABS: Ionized Calcium 1.14 mMOL/L (1.15-1.33); O2 Saturation % 99.7 % (94-98); PCO2 20 mmHg (35-48); PO2 141 mmHg (83-108); Potassium 4.8 mMOL/L (3.5-5.1)
[2024-12-09 03:27] LABS: pH 7.15 (7.35-7.45)
[2024-12-09 03:27] LABS: Vancomycin Random 14.4 ug/ml
[2024-12-09 03:29] LABS: Albumin 2.9 g/dl (3.5-5.0); Alkaline Phosphatase 66 U/L (38-126); Blood Urea Nitrogen 28 mg/dl (9-20); Calcium 8.8 mg/dl (8.4-10.2); Carbon Dioxide 6 mmol/L (22-30); Chloride 103 mmol/L (98-107); Direct Bilirubin 0.9 mg/dl (0.0-0.4); Estimated Creatinine Clearance 26 ml/min; Glucose 83 mg/dl (70-99); HDL Cholesterol 27 mg/dl; LDL Cholesterol, Calculated -6 mg/dl; Magnesium 2.6 mg/dl (1.6-2.3); Phosphorus 8.5 mg/dl (2.5-4.5); Potassium 4.7 mmol/L (3.5-5.1); Sodium 145 mmol/L (135-145); Total Bilirubin 2.2 mg/dl (0.2-1.3); Total Cholesterol 57 mg/dl (50-199); Triglyceride 184 mg/dl (10-149); Very Low Density Lipoprotein 36 mg/dl (0-30); eGFR 35.54
[2024-12-09 03:34] LABS: Lactic Acid > 24.0 mmol/L (0.7-2.0)
[2024-12-09] MEDS: PITRESSIN 100 IV (03:44)
[2024-12-09] MEDS: CALCIUM CHLORIDE 10% SYRINGE 1000 MG IV (03:45)
[2024-12-09] MEDS: SODIUM BICARBONATE 100 MEQ IV (03:46)
[2024-12-09 03:58] LABS: ALT (SGPT) 4973 U/L (0-50); AST (SGOT) 4016 U/L (17-59)
--- NOTE | 2024-12-09 04:27 | W.PN.DEATH ---
Pronouncement of
-
Called to see patient to pronounce.
No spontaneous heart tones or respirations noted.
Patient not responsive to verbal stimuli.
Patient is pronounced .
Time of : 04:00
Date of : 12/09/24
Family Notified: Yes
--- NOTE | 2024-12-09 06:12 | PTCARENOTE ---
Post mortem care completed per protocol. Patient and patient belongings transported to the [facility]. Patient belongings given to Security. Gift of life notified.
--- NOTE | 2024-12-09 07:17 | W.DCSUMMARY ---
Discharge Summary
Discharge Data
Date of Admission: 12/08/24
Date of Discharge: 12/09/24
-
Pending Results: No
Hospital Course
Date of 12/09/24; Time of 04:00
Primary care physician : Dr. Isidoro Disla
Hospital Course :
Mr. 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
to [facility] with recurrent episodes of chest pain since cath in October which increased in intensity. He was admitted to [facility] and is s/p cath showing multivessel CAD with concern for in-stent restenosis of RCA and closure of vein graft. He was
transferred to for further intervention.
Patient underwent cardiac cath on 12/08. RHC performed first showing high filling pressures with wedge 33, index 1.8. LHC showed likely closure of vein graft with decreased flow RCA stent s/p balloon angioplasty. Cath complicated by episode of
hypotension and non-responsiveness s/p 1minute CPR and Epi with immediate ROSC and wakefulness. He was admitted to CVICU. He was in SVT and amiodarone gtt started. UA inflamed, he was started on IV Cefepime for possible UTI. Unfortunately
patient became increasingly short of breath requiring intubation and hypotensive in setting of cardiogenic shock and possible septic shock from UTI. He was started on multiple pressors. Cardioversion attempted for fast rhythm. Patient was DNR.
Despite above interventions he . Family was notified.
Important imaging findings :
Procedure findings :
Discharge Plan
-
Patient Disposition:
Date/Time
Date/Time: 12/09/24 04:00
Discharge Date and Time
Discharge Date/Time: 12/09/24 06:37
Print Language: SLOVENIAN
[2024-12-09 11:39] LABS: Glycohemoglobin (HgbA1c) 6.4 % (4.0-5.6)
== END 2024-12-09 06:37 | disposition expired | DRG 250 ==
LOC: CVICU 13:42
PROVIDERS: Internal Medicine; Nurse Practitioner; Physician Assistant Medical; Urology; ADMITTING PHYSICIAN Internal Medicine Cardiovascular Disease; ATTENDING PHYSICIAN Student in an Organized Health Care Education/Training Program; CONSULT PHYSICIAN Internal Medicine Critical Care Medicine; FAMILY PHYSICIAN Family Medicine
PROC: B2181ZZ Fluoroscopy of Left Internal Mammary Bypass Graft using Low Osmolar Contrast (ICD-10-PCS; 2024-12-08)
PROC: 5A12012 Performance of Cardiac Output, Single, Manual (ICD-10-PCS; 2024-12-08)
PROC: B2111ZZ Fluoroscopy of Multiple Coronary Arteries using Low Osmolar Contrast (ICD-10-PCS; 2024-12-08)
PROC: 5A1935Z Respiratory Ventilation, Less than 24 Consecutive Hours (ICD-10-PCS; 2024-12-08)
PROC: B240ZZ3 Ultrasonography of Single Coronary Artery, Intravascular (ICD-10-PCS; 2024-12-08)
PROC: B2121ZZ Fluoroscopy of Single Coronary Artery Bypass Graft using Low Osmolar Contrast (ICD-10-PCS; 2024-12-08)
PROC: 0BH17EZ Insertion of Endotracheal Airway into Trachea, Via Natural or Artificial Opening (ICD-10-PCS; 2024-12-08)
PROC: 02703ZZ Dilation of Coronary Artery, One Artery, Percutaneous Approach (ICD-10-PCS; 2024-12-08)
PROC: 4A023N7 Measurement of Cardiac Sampling and Pressure, Left Heart, Percutaneous Approach (ICD-10-PCS; 2024-12-08)
PROC: 5A2204Z Restoration of Cardiac Rhythm, Single (ICD-10-PCS; 2024-12-09)
DX: I21.4 Non-ST elevation (NSTEMI) myocardial infarction (principal); A41.9 Sepsis, unspecified organism; I50.23 Acute on chronic systolic (congestive) heart failure; J96.01 Acute respiratory failure with hypoxia; R65.21 Severe sepsis with septic shock; I47.10 Supraventricular tachycardia, unspecified; E87.20 Acidosis, unspecified; N39.0 Urinary tract infection, site not specified; I25.810 Atherosclerosis of coronary artery bypass graft(s) without angina pectoris; F05 Delirium due to known physiological condition; T82.528A Displacement of other cardiac and vascular devices and implants, initial encounter; Z66 Do not resuscitate; I25.10 Atherosclerotic heart disease of native coronary artery without angina pectoris; I08.0 Rheumatic disorders of both mitral and aortic valves; I48.0 Paroxysmal atrial fibrillation; R57.0 Cardiogenic shock; Y83.1 Surgical operation with implant of artificial internal device as the cause of abnormal reaction of the patient, or of later complication, without mention of misadventure at the time of the procedure; I46.2 Cardiac arrest due to underlying cardiac condition; E78.5 Hyperlipidemia, unspecified; I11.0 Hypertensive heart disease with heart failure; I95.1 Orthostatic hypotension; J44.9 Chronic obstructive pulmonary disease, unspecified; K21.9 Gastro-esophageal reflux disease without esophagitis; I45.10 Unspecified right bundle-branch block; R00.1 Bradycardia, unspecified; D64.9 Anemia, unspecified; R73.9 Hyperglycemia, unspecified; R74.01 Elevation of levels of liver transaminase levels; I27.29 Other secondary pulmonary hypertension; R29.6 Repeated falls; I25.2 Old myocardial infarction; Z79.02 Long term (current) use of antithrombotics/antiplatelets; Z79.82 Long term (current) use of aspirin; Z79.899 Other long term (current) drug therapy; Z87.891 Personal history of nicotine dependence; Z95.0 Presence of cardiac pacemaker; Z95.1 Presence of aortocoronary bypass graft; Z95.5 Presence of coronary angioplasty implant and graft
CPT/HCPCS: 71045; 76937; 80048; 80053; 80061; 80202; 81003; 81015; 82248; 82330; 82805; 82962; 83036; 83605; 83735; 84100; 84132; 84145; 84478; 84484; 85025; 85027; 85610; 85730; 87040; 87086; 87147; 87186; 87641; 92920; 92950; 92978; 93005; 93457; 94002; 94003; 99152; 99153; C1725; C1753; C1769; C1894; J1160; Q9967